=== PATIENT | male | born 1980 | race Caucasian/White ===

== ENCOUNTER 2017-02-28 15:43 | Inpatient (IN) | payer OTHER ==
--- NOTE | 2017-02-28 16:09 | EDPHY ---
H & P Smoking Status: Current every day smoker Time Seen by Provider: 02/28/17 15:45 HPI/ROS: Chief complaint. Agitation HPI. 36-year-old male here on an M1 hold and accompanied by to [place] Police officers. They went to the patient's apartment for a welfare check and found riding in pictures drawn all over the morales and no food in the house. The patient was not oriented and speaking nonsensically. Apparently he has had mental health problems in the past but has not been taking medication for some time. The patient does not express any complaints to questions but has flight of ideas and tangential thinking ROS Constitutional. no fever/chills, no weakness Eyes. no problems with vision ENT. no sore throat, no nasal drainage Cardiovascular. no chest pain Respiratory. no shortness of breath, no cough Abdominal. no abdominal pain, no nausea/vomiting, no diarrhea . no problems urinating MS. no calf pain/swelling, no neck/back pain, no joint pain Skin. no rash Lymph. no swollen glands Neuro. no headache, no dizziness, no difficulty walking or with speech (Clemente Quick) Past Medical/Surgical History: Apparent mental health issue though the patient does not tell me what it is. We have no old records. (Clemente Quick) Social History: Single, daily smoker, no recent alcohol (Clemente Quick) Physical Exam: General Appearance: Alert well-developed male speaking rapidly and changing quickly between subjects in no obvious distress Eyes: Pupils equal and round no pallor or injection. ENT, Mouth: Mucous membranes are moist. Respiratory: There are no retractions, lungs are clear to auscultation. Cardiovascular: Regular rate and rhythm. Gastrointestinal: Abdomen is soft and nontender, no masses, bowel sounds normal. Neurological: Awake and alert, sensory and motor exams grossly normal. Skin: Warm and dry, no rashes. Musculoskeletal: Neck is supple nontender. Extremities symmetrical, full range of motion. Psychiatric: Unclear patient is oriented as he will not answer my questions for person, place, time., there is agitation. (Clemente Quick) Constitutional: Initial Vital Signs Temperature (C) 37.1 C 02/28/17 15:54 Heart Rate 88 02/28/17 15:54 Respiratory Rate 22 H 02/28/17 15:54 Blood Pressure 160/89 H 02/28/17 15:54 O2 Sat (%) 98 02/28/17 15:54 O2 Delivery Mode Room Air Allergies/Adverse Reactions: No Known Allergies Allergy (Unverified 02/28/17 16:15) Home Medications: Medication Instructions Recorded Unobtainable 12/15/16 NK [No Known Home Meds] 03/01/17 Medical Decision Making Procedures: Placed on M1 hold by mental health (Clemente Quick) ED Course/Re-evaluation: Patient has been evaluated by mental health and they are looking for placement Patient is given Zyprexa and Ativan orally. Patient remains stable (Clemente Quick) Differential Diagnosis: Patient is psychotic. I have considered drug ingestion as well as withdrawal. He apparently has a mental health history and has not been taking medication. ( Clemente Quick) Other Provider: Care assumed at 6:40 a.m. with inpatient psychiatric placement pending for psychotic disorder. The patient will be transferred to [facility] for inpatient psychiatric hospital bed not available at this facility, in stable condition; accepting physician is Dr. Zarco. (Tomas Doty) Care Turn Over: Dr. Spencer at 2230. (Clemente Quick) 2235 care assumed by me from Dr. Quick pending placement. [address] Doty pending placement. No issues during my care overnight. (Reagan Spencer) - Data Points Laboratory Results: Laboratory Results 02/28/17 17:20 02/28/17 17:20 Medications Given: Discontinued Medications Lorazepam (Ativan) 2 mg PO EDNOW ONE Stop: 02/28/17 21:45 Last Admin: 02/28/17 21:48 Dose: 2 mg Lorazepam (Ativan) 2 mg PO EDNOW ONE Stop: 03/01/17 08:28 Last Admin: 03/01/17 08:40 Dose: 2 mg Olanzapine (Zyprexa Zydis) 10 mg PO EDNOW ONE Stop: 02/28/17 21:06 Last Admin: 02/28/17 21:10 Dose: 10 mg Departure - Departure Disposition: [facility] IP Clinical Impression: Acute psychosis Condition: Fair
[2017-02-28 17:35] LABS: % IMMATURE GRANULYOCYTES 0.3 % (0.0-1.1); ABSOLUTE IMMATURE GRANULOCYTES 0.02 10^3/uL (0.00-0.10); ADD DIFF? NO; ADD MORPH? NO; ADD SCAN? NO; ATYPICAL LYMPHOCYTE FLAG 20 (0-99); FRAGMENT RBC FLAG 0 (0-99); HEMATOCRIT 45.4 % (40.0-51.0); HEMOGLOBIN 15.5 g/dL (13.7-17.5); LEFT SHIFT FLG 0 (0-99); LIPEMIA HEMOLYSIS FLAG 90 (0-99); MEAN CELL HEMOGLOBIN 30.6 pg (27.9-34.1); MEAN CELL HEMOGLOBIN CONCENTR. 34.1 g/dL (32.4-36.7); MEAN CELL VOLUME 89.5 fL (81.5-99.8); MEAN PLATELET VOLUME 9.6 fL (8.7-11.7); PLATELET CLUMPS FLAG 10 (0-99); PLATELET COUNT 273 10^3/uL (150-400); RED BLOOD CELL COUNT 5.07 10^6/uL (4.40-6.38); RED CELL DISTRIBUTION WIDTH 14.6 % (11.5-15.2)
[2017-02-28 18:13] LABS: ANION GAP 13 mEq/L (8-16); CALCIUM 9.7 mg/dL (8.5-10.4); CARBON DIOXIDE 27 mEq/l (22-31); CHLORIDE 103 mEq/L (97-110); CREATININE 0.9 mg/dL (0.7-1.3); ETHANOL SERUM < 10 mg/dL (0-10); GLOMERULAR FILTRATION RATE > 60; GLUCOSE 74 mg/dL (70-100); POTASSIUM 4.1 mEq/L (3.5-5.2); SODIUM 143 mEq/L (134-144)
[2017-02-28] MEDS ORDERED: OLANZapine DISINTEGR 10 MG TAB PO ONE (21:05)
[2017-02-28] MEDS ORDERED: LORazepam 1 MG TAB PO ONE (21:44)
[2017-03-01] MEDS ORDERED: LORazepam 1 MG TAB PO ONE (08:27)
[2017-03-01] MEDS ORDERED: MAGNESIUM HYDROXIDE 30 ML UDCUP PO PRN (12:38)
[2017-03-01] MEDS ORDERED: OLANZapine DISINTEGR 10 MG TAB PO PRN (12:38)
[2017-03-01] MEDS ORDERED: LORazepam 0.5 MG TAB PO PRN (12:38)
[2017-03-01] MEDS ORDERED: MAG HYDROX/AL HYDROX/SIMETH 30 ML UDCUP PO PRN (12:38)
[2017-03-01] MEDS: LORazepam 0.5 MG TAB PO PRN ×2 (14:17→17:52)
[2017-03-01] MEDS: NICOTINE POLACRILEX 2 MG GUM B PRN ×4 (14:19→17:54)
--- NOTE | 2017-03-01 14:46 | BAPA ---
[f rep st] ADMISSION PSYCHIATRIC ASSESSMENT DATE OF SERVICE: 03/01/2017 CHIEF COMPLAINT: "How big are your pupils, you should check them every day. My TV was too big, bigger than my head." HISTORY OF PRESENT ILLNESS: The patient is a 42-year-old single man who was brought to the [facility] ED on an M1 hold. APS had been called by the field account manager due to concerns for the patient's well being. When police conducted a welfare check on the patient, it was observed that the patient had no food in his apartment, his apartment was in disarray, and patient had drawn various numbers, lines and letters on the white apartment morales. Per M1 hold, documents stated, "Respondent is highly tangential and nonsensical, becomes irate when asked if he wants to go to the hospital. Respondent's apartment is covered in crayon drawings of random words and numbers. Only a box of raw noodles in the refrigerator, apartment's staff report respondent has lost a large amount of weight and become increasingly bizarre in the past few months. Respondent appears manic and gravely disabled. " The [employer]ive [employer] charcoal burner was informed that the patient had thrown something at the [employer] charcoal burner when he was informed of the need to go to the hospital. When the [employer] be[employer] charcoal burner entered the patient's room in the ED, the patient was sitting on the bed, noted to be talking to the TV. He displayed no insight into the reason he was in the hospital, and unable to answer basic historical information in any reliable manner. According to collateral information, patient has been living in [place] for about 5-6 months. He moved from [place]. The patient's field account manager noted the patient appeared to be functioning well initially, but residents and the field account manager have been increasingly concerned about the patient's well being. The patient made nonsensical statements during brief evaluation in the ED. During his evaluation on the inpatient Behavioral Health unit on [address], the patient was sitting calmly in a chair, wearing scrubs bottoms, but no top, with a blanket wrapped around his shoulders. He acted like he was reading a newspaper, but he kept shuffling the papers, putting them down and picking them back up. He seemed somewhat restless and agitated. He asks , "Where am I", followed by a series of questions without waiting for the MD to respond. He said "can I watch TV, can I smoke, when can I leave?" When MD tried to ask the patient what he remembered prior to coming to the hospital, patient says "I was picked up in the lobby" and then repeated "where am I?" The patient was not able to provide any other information about his past medical or psychiatric history, or even where he was living prior to coming to the hospital. The patient eventually said that he wanted to stop the interview and asked if he could watch TV. PAST PSYCHIATRIC HISTORY: Initially in the emergency department, patient was not able to answer any questions about prior psych treatment, prior suicide attempts, or previous hospitalizations. According to report from the ED nurse who had spoken with the patient's father in [place] just this morning, father reported that the patient has been previously admitted to the hospital and has been treated for bipolar disorder, and was taking medications in the past, although the father did not know what type of medications the patient was on, but father states that the patient moved from [place] to [place] in order to be able to use marijuana, and that the father states that the patient has been using marijuana regularly over the past 6 months, and as far as the father can tell, patient seems to have decompensated significantly, based upon their limited interactions. Father has not seen the patient in person during that time. ALLERGIES: Patient reports no known drug allergies. CURRENT MEDICATIONS: Patient is not currently taking any medications. PAST MEDICAL HISTORY: The patient denied any previous medical conditions. He denied any surgical history when he was evaluated in the emergency department. SOCIAL HISTORY: Limited information, based upon patient's unreliable historian. Most of the information we have comes from the field account manager where the patient lived, and from the patient's father. The patient was living in [place] until about 6 months ago. The patient has moved to [place], according to the father, in order to be able to smoke marijuana legally. Patient has been staying alone in his apartment and, according to the field account manager and his neighbors, has decompensated significantly over that time, not eating, losing weight and, according to the police who did the welfare check, he has been scribbling nonsense on his morales with crayons and markers. It is not known whether or not patient has any social supports in [place], but as far as we know the only family that he has lives in [place]. Nothing is known about his educational or employment history. SUBSTANCE USE HISTORY: Most of what we know comes from the father, who states that the patient wanted to move to [place] in order to smoke marijuana legally. Reports would substantiate claims that the patient has been engaging in frequent use of marijuana, particularly over the last 6 months. His urine drug screen was positive for THC in the emergency department. The patient also reports that he is a daily cigarette smoker, but he denied any alcohol use when he was asked by the ED physician. FAMILY HISTORY: Unknown at this time, because the patient is unable to provide that information and we have not obtained a family history from his father, who is the only family member who has been in contact with medical staff. ADMISSION LABS: White cell count is 7.05, hemoglobin is 15.5, hematocrit 45.4, platelet count is 273, absolute neutrophils 4.4, sodium 143, potassium 4.1, chloride 103, BUN is 20 and creatinine 0.9, glucose 74, calcium 9.7. Urine drug screen was positive for marijuana. Negative for all other drugs of abuse. Blood alcohol level is less than 10. Acetaminophen level was undetected. MENTAL STATUS EXAM: This is an alert, well-developed male, speaking rapidly and changing subjects quickly. He initially asked the psych MD a rapid series of questions without waiting for responses. He seems easily distracted and unable to maintain focus for very long. His affect is labile. He does not respond when asked to describe his mood. His thought process is tangential and disorganized. His thought content, he denies any auditory or visual hallucinations. There is no evidence of paranoia or delusions. The patient is alert and oriented to person only. He does not know where he is or what day it is, or why he is in the hospital. His intellect appears to be below average, based upon fund of knowledge and vocabulary. His insight and judgment are both impaired. IMPRESSION: This is a 42-year-old male who, according to his father, has a prior history of bipolar disorder, which has been treated in the past. The patient has been, since moving to [place] 6 months ago, not receiving any treatment, and has been using marijuana daily. The father does report that the patient has been a habitual marijuana user prior to his move to [place]. DIAGNOSES: 1. Substance-induced psychotic disorder. 2. Cannabis use disorder, severe. 3. Psychosocial stressors include unemployed, financial problems, isolation, living away from his family and friends, recent arrival in a new state. 4. Apartment has been kept in a state of disrepair. PLAN OF TREATMENT: 1. Admit to behavioral health inpatient unit on an M1 hold. 2. Monitor closely for safety and reasonable precautions. 3. Will prescribe Zyprexa 10 mg p.o. at bedtime for his acute psychotic symptoms, as well as Zyprexa 5 mg p.o. q.4 hours p.r.n. for agitation and psychosis. We will also prescribe Ativan 1 mg p.o. q.4 hours p.r.n. for agitation and psychosis, as well as other comfort medications. 4. Will encourage the patient to engage in individual, group and milieu psychotherapies. 5. Estimated length of stay is 3-5 days. /[id number]/MODL MTDD
--- NOTE | 2017-03-01 14:56 | BCON ---
[f rep st] BEHAVIORAL HEALTH CONSULTATION INTERNAL MEDICINE CONSULTATION DATE OF CONSULTATION: 03/01/2017 REFERRING PHYSICIAN: Darwin Zarco MD REASON FOR REFERRAL: Medical clearance for inpatient behavioral health stay. HISTORY OF PRESENT ILLNESS: The patient was brought to the emergency department by police when they were called to do a welfare check. He was found in his apartment writing on the wall with no food in the house. He was not oriented, and he was speaking nonsensically. He was brought to the emergency department where he was evaluated by the mental health team and admitted for further psychiatric care. He currently is without any acute complaints. PAST MEDICAL HISTORY: 1. Bipolar disorder. 2. Left and right anterior cruciate ligament tears on different occasions. PAST SURGICAL HISTORY: He has had a repair of the left anterior cruciate ligament tear. MEDICATIONS: He reports that he had been taking a number different benzodiazepines but had not been taking any medications recently. ALLERGIES: There are no known drug allergies. 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 He is a heavy tobacco smoker. He is a marijuana user. He uses alcohol. There was a recent emergency department visit about 2 months ago for LSD intoxication. FAMILY HISTORY: Noncontributory. REVIEW OF SYSTEMS: He denies pain, fevers, chills, cough, dyspnea, nausea, vomiting, constipation, diarrhea. He has had some weight loss and otherwise a 10-point review of systems is negative. PHYSICAL EXAMINATION: VITAL SIGNS: Blood pressure is 121/70, heart rate is 90 , respiratory rate is 14, oxygen saturation is 98% on room air. Temperature is 36.4 degrees centigrade. His weight is 72.6 kg for a body mass index of 22.3. GENERAL: This is a somewhat gaunt-appearing individual, appears his chronologic age, cooperative, and in no acute distress. Initially somnolent but awakens to light touch. HEENT: Extraocular movements are intact. Pupils are equal, round, and reactive to light. Mucous membranes are moist. Dentition is in good condition. Airway is uncrowded, Mallampati class 1. NECK : Supple. HEART: There is regular rate and rhythm with no murmurs, rubs, or gallops. LUNGS: Clear to auscultation bilaterally. ABDOMEN: Soft, nontender , nondistended with normoactive bowel sounds EXTREMITIES: There is no cyanosis , clubbing, or edema. NEUROLOGIC: He is alert and oriented x3. Cranial nerves 2-12 are grossly intact. There is no focal weakness. Sensation is intact to light touch and gait is within normal limits. LABORATORY STUDIES: From the emergency department. CBC was normal. Chemistry panel was normal. Toxicology in the serum was negative for acetaminophen or ethyl alcohol. Toxicology in the urine was none, negative for marijuana and otherwise negative for substances of abuse. ASSESSMENT/RECOMMENDATIONS: 1. Mental health issues. Pending further evaluation and management per the Mental Health Team. 2. Tobacco dependence syndrome. He was encouraged to stop smoking. Nicotine replacement has been prescribed. 3. Polysubstance abuse. He may benefit from specific substance abuse counseling. 4. History of anterior cruciate ligament tear on the right without surgical repair. He reports he gets occasional pain and acetaminophen has been appropriately prescribed. 5. I see no medical contraindications to the patient's continued stay in the inpatient behavioral health unit or to any psychiatric medications or procedures. Thank you very much for including me in the care of the patient, and please do not hesitate to contact me or the hospitalist service should there be need for further medical evaluation. /[id number]/MODL MTDD
[2017-03-01] MEDS: ACETAMINOPHEN 325 MG TAB PO PRN (15:22)
[2017-03-01] MEDS ORDERED: OLANZapine 10 MG TAB PO SCH (21:00)
[2017-03-02] MEDS: LORazepam 0.5 MG TAB PO PRN ×3 (01:00→12:41)
[2017-03-02] MEDS: NICOTINE POLACRILEX 2 MG GUM B PRN ×9 (05:08→19:18)
[2017-03-02] MEDS ORDERED: PALIPERIDONE 3 MG TAB.ER PO SCH (09:00)
--- NOTE | 2017-03-02 13:41 | SOAPPROG ---
YUDI Progress Note Assessment/Plan: Assessment: 03/02/17 13:32 Plan: 1. Patient states he prefers to take Invega which has been helpful to him in past. D/C Zyprexa and start Invega 3mg daily. 2. Place on [facility] 3. CC will attempt to contact family for collateral information. Subjective: Met with patient and discussed with staff. Patient presents with pressured speech and racing thoughts. He is difficult to interrupt. Patient says he has moved around [facility]. He lived in [place] in [phone] while he was attending [employer]. He was born and raised in [place], and supposedly that is where his family now lives. He says his POC when he was 10 yo, and that his father, Karsten, is his payee. However, he also says his FOC has "dementia" and that his SOC, Valerie, is taking care of his dad. Patient says he's taken "every single" type of psych med in past and is very picky about which meds he will voluntarily take. He says he won't take Zyprexa, Depakote or lithium, but refuses to say what effect they have or whether he's experienced adverse effects from any of these meds. He also reports being hospitalized "7 to 10 times" in [place] and "other places" but says it was always against his will because "someone called the police." Patient presents as paranoid and delusional, at one point he says he needs "batteries for my tape recorder" so he can record everything we talk about, but says, "that's OK, I will remember everything word for word." Patient gave a list of phone numbers for his family each one from memory. has no way to know if they are reliable, but has passed on information to CC. FOC=Karsten Thibodeaux Home: SOC=Valerie Patient denies any SI/HI. Objective: Vital Signs Temp Pulse Resp BP Pulse Ox 36.3 C 76 14 134/82 H 95 03/02/17 06:00 03/02/17 06:00 03/02/17 06:00 03/02/17 06:00 07/28/17 06:00 MSE: Tall, thin, gaunt face, campos stubble, glasses, shorts, T-shirt, pleasant. Affect: Elevated Mood: "OK" Speech: Pressured TP: Loose TC: Paranoia, denies AH/VH, denies SI/HI Insight/Judgment: Impaired - Time Spent With Patient Time Spent With Patient: 25" - Pending Discharge Pending Discharge Within 24 Hours: No ICD10 Worksheet Patient Problems: Problems Problem Status Onset Acute psychosis Acute Cannabis use disorder, severe, dependence Acute Severe manic bipolar 1 disorder with psychotic behavior Acute - ICD10 Problem Qualifiers (1) Severe manic bipolar 1 disorder with psychotic behavior (2) Cannabis use disorder, severe, dependence
[2017-03-02] MEDS ORDERED: QUEtiapine FUMARATE 50 MG TAB PO PRN (13:57)
[2017-03-02] MEDS ORDERED: LORazepam 0.5 MG TAB PO PRN (13:59)
[2017-03-02] MEDS: ACETAMINOPHEN 325 MG TAB PO PRN (15:46)
[2017-03-02] MEDS: LORazepam 1 MG TAB PO PRN (18:00)
[2017-03-02] MEDS ORDERED: diphenhydrAMINE 50 MG CAP PO PRN (20:27)
[2017-03-03] MEDS: LORazepam 1 MG TAB PO PRN ×4 (04:25→23:12)
[2017-03-03] MEDS: NICOTINE POLACRILEX 2 MG GUM B PRN ×8 (04:25→23:14)
[2017-03-03] MEDS: PALIPERIDONE 3 MG TAB.ER PO SCH (08:53)
[2017-03-03] MEDS ORDERED: QUEtiapine FUMARATE 50 MG TAB PO PRN (12:32)
--- NOTE | 2017-03-03 12:49 | SOAPPROG ---
SOAP Progress Note Assessment/Plan: Assessment: 36yo with hx BMD, moved to [place] from [place] several months ago, off psych meds, and smoking THC. Decompensated since, admitted after welfare check and noted with no food in apt and writings in crayon all over morales, gravely disabled, clinically presented manic and psychotic. refuses any mood stabilizers. 03/03/17 12:34 per staff, slept 6hr. had benadryl this am as prn. was able to sit throughout interview, in behavioral control, wearing glasses, articulate, but with incr rate speech almost pressured, mood "fine", but with intense affect, somewhat argumentative with irritable vijay, pt asking multiple questions with little time for response, illogical and tangential responses to questions, denied any AH/VH or SI/HI, made Biblical references at times, and with loose associations (ie to another staff: "your hair is mueller, do you want me to tell you the composition of the yellow sun?), poor insight, impaired judgmt. does not feel he needs to be in hospital, wants to leave to pay rent by 03/06. when asked about THC, denied smoking, but wouldn't answer about edibles, rather stated "CBD not THC or PCP, but you do THC and maybe PCP..." No evid clinically of any s/e to medications. PLAN: cont on [facility] cont Invega 6mg qam. had requested this, and reports on IM in past. likely will need further increase incr seroquel from 50mg q4hr prn to 100mg q4hr prn. cont prn BZDs and prn for nicotine use d/o. Objective: Vital Signs Temp Pulse Resp BP Pulse Ox 36.9 C 70 14 127/78 H 94 03/03/17 06:00 03/03/17 06:00 03/03/17 06:00 03/03/17 06:00 03/03/17 06:00 - Time Spent With Patient Time Spent With Patient: 25min - Pending Discharge Pending Discharge Within 24 Hours: No Pending Discharge Within 48 Hours: No ICD10 Worksheet Patient Problems: Problems Problem Status Onset Acute psychosis Acute Cannabis use disorder, severe, dependence Acute Severe manic bipolar 1 disorder with psychotic behavior Acute
[2017-03-03] MEDS: NICOTINE 14 MG/24 HR PATCH TD SCH (16:02)
[2017-03-03] MEDS: QUEtiapine FUMARATE 100 MG TAB PO PRN (20:26)
[2017-03-04] MEDS: LORazepam 1 MG TAB PO PRN ×3 (03:29→16:10)
[2017-03-04] MEDS: NICOTINE POLACRILEX 2 MG GUM B PRN ×7 (03:38→17:38)
[2017-03-04] MEDS: NICOTINE 14 MG/24 HR PATCH TD SCH (08:24)
[2017-03-04] MEDS: PALIPERIDONE 3 MG TAB.ER PO SCH ×2 (08:26→20:15)
[2017-03-04] MEDS: ACETAMINOPHEN 325 MG TAB PO PRN (18:18)
[2017-03-04] MEDS: clonazePAM 0.5 MG TAB PO SCH (20:15)
--- NOTE | 2017-03-04 23:53 | SOAPPROG ---
SOAP Progress Note Assessment/Plan: Assessment: 36yo with hx BMD, moved to [place] from [place] several months ago, off psych meds, and smoking THC. Decompensated since, admitted after welfare check and noted with no food in apt and writings in crayon all over morales, gravely disabled, clinically presented manic and psychotic. refuses any mood stabilizers. on [facility] 03/03/17 12:34 per staff, slept 6hr. had benadryl this am as prn. was able to sit throughout interview, in behavioral control, wearing glasses, articulate, but with incr rate speech almost pressured, mood "fine", but with intense affect, somewhat argumentative with irritable vijay, pt asking multiple questions with little time for response, illogical and tangential responses to questions, denied any AH/VH or SI/HI, made Biblical references at times, and with loose associations (ie to another staff: "your hair is mueller, do you want me to tell you the composition of the yellow sun?), poor insight, impaired judgmt. does not feel he needs to be in hospital, wants to leave to pay rent by 03/06. when asked about THC, denied smoking, but wouldn't answer about edibles, rather stated "CBD not THC or PCP, but you do THC and maybe PCP..." No evid clinically of any s/e to medications. PLAN: cont on [facility] cont Invega 6mg qam. had requested this, and reports on IM in past. likely will need further increase incr seroquel from 50mg q4hr prn to 100mg q4hr prn. cont prn BZDs and prn for nicotine use d/o. 03/04/17 15:45 slept 5hr. responding to int stim, talking to self and has multiple med change requests to RN for [place], incl wants stronger nicotine patch, off ativan, prefers 4mg klonopin, off seroquel b/c dry mouth, requests methadone and ambien. on interview, pt makes same requests again as above. talked about a pyramid scheme of drugs incl heroin and how to get off heroin, states "I enjoy Invega" and doesn't mind increase when offered. persev on klonopin that this helped in past and better than ativan. most of conversation was tangential, pressured, with irritable affect, many sarcastic comments, asking several ?s before answer could be provided, illogical and tangential thought processes, unable to answer interview questions in any meaningful manner. denied si. has been observed responding to int stimuli on unit. somewhat incr psychom activity but able to sit throughout interview. nml/loud vol of speech, with fairly intense gaze during interview. PLAN: will change Ativan 1-2mg prn to Klonopin 0.5mg bid with 0.25mg bid prn. has been using 6mg ativan daily on average. incr Invega to 01/06 from 6mg qam changed mind and just wants to keep on 14mcg omkar patch Objective: Vital Signs Temp Pulse Resp BP Pulse Ox 36.6 C 77 12 125/78 H 94 03/04/17 06:00 03/04/17 06:00 03/04/17 06:00 03/04/17 06:00 03/04/17 06:00 - Time Spent With Patient Time Spent With Patient: 35min - Pending Discharge Pending Discharge Within 24 Hours: No Pending Discharge Within 48 Hours: No ICD10 Worksheet Patient Problems: Problems Problem Status Onset Acute psychosis Acute Cannabis use disorder, severe, dependence Acute Severe manic bipolar 1 disorder with psychotic behavior Acute
[2017-03-05] MEDS: clonazePAM 0.5 MG TAB PO PRN ×2 (03:17→10:03)
[2017-03-05] MEDS: NICOTINE POLACRILEX 2 MG GUM B PRN ×3 (04:17→18:51)
[2017-03-05] MEDS: PALIPERIDONE 3 MG TAB.ER PO SCH ×2 (08:30→20:25)
[2017-03-05] MEDS: NICOTINE 14 MG/24 HR PATCH TD SCH (08:30)
[2017-03-05] MEDS: clonazePAM 0.5 MG TAB PO SCH ×2 (08:30→20:24)
[2017-03-05] MEDS ORDERED: OLANZapine DISINTEGR 10 MG TAB ONE (10:33)
[2017-03-05] MEDS ORDERED: OLANZapine DISINTEGR 10 MG TAB PO ONE (11:30)
[2017-03-05] MEDS ORDERED: PALIPERIDONE 3 MG TAB.ER PO ONE (11:30)
[2017-03-05] MEDS ORDERED: clonazePAM 0.5 MG TAB PO ONE ×2 (14:00→17:00)
--- NOTE | 2017-03-05 23:19 | SOAPPROG ---
SOAP Progress Note Assessment/Plan: Assessment: 36yo with hx BMD, moved to [place] from [place] several months ago, off psych meds, and smoking THC. Decompensated since, admitted after welfare check and noted with no food in apt and writings in crayon all over morales, gravely disabled, clinically presented manic and psychotic. refuses any mood stabilizers. on [facility] [[email or web address] 03/03/17 12:34 per staff, slept 6hr. had benadryl this am as prn. was able to sit throughout interview, in behavioral control, wearing glasses, articulate, but with incr rate speech almost pressured, mood "fine", but with intense affect, somewhat argumentative with irritable vijay, pt asking multiple questions with little time for response, illogical and tangential responses to questions, denied any AH/VH or SI/HI, made Biblical references at times, and with loose associations (ie to another staff: "your hair is mueller, do you want me to tell you the composition of the yellow sun?), poor insight, impaired judgmt. does not feel he needs to be in hospital, wants to leave to pay rent by 03/06. when asked about THC, denied smoking, but wouldn't answer about edibles, rather stated "CBD not THC or PCP, but you do THC and maybe PCP..." No evid clinically of any s/e to medications. PLAN: cont on [facility] [[email or web address]] cont Invega 6mg qam. had requested this, and reports on IM in past. likely will need further increase incr seroquel from 50mg q4hr prn to 100mg q4hr prn. cont prn BZDs and prn for nicotine use d/o. 03/04/17 15:45 slept 5hr. responding to int stim, talking to self and has multiple med change requests to RN for MD, incl wants stronger nicotine patch, off ativan, prefers 4mg klonopin, off seroquel b/c dry mouth, requests methadone and ambien. on interview, pt makes same requests again as above. talked about a pyramid scheme of drugs incl heroin and how to get off heroin, states "I enjoy Invega" and doesn't mind increase when offered. persev on klonopin that this helped in past and better than ativan. most of conversation was tangential, pressured, with irritable affect, many sarcastic comments, asking several ?s before answer could be provided, illogical and tangential thought processes, unable to answer interview questions in any meaningful manner. denied si. has been observed responding to int stimuli on unit. somewhat incr psychom activity but able to sit throughout interview. nml/loud vol of speech, with fairly intense gaze during interview. PLAN: will change Ativan 1-2mg prn to Klonopin 0.5mg bid with 0.25mg bid prn. has been using 6mg ativan daily on average. incr Invega to 01/06 from 6mg qam changed mind and just wants to keep on 14mcg omkar patch 03/05/17 12:53 per staff, slept 6hr. constantly responding to int stim when alone. illogical thoughts, loose. was asked to leave group b/c verbally aggressive and loud. security was stand-by when pt argued about prn dose of klonopin at 3am on interview, pt initially challenging, condescending, sarcastic, frequently interrupting and annoyed with questions until "you finally asked me a good question". affect calmed in intensity and pt provided more history although continued tangential, difficult to follow, and with almost pressured speech. no SI, didn't directly answer whether experiencing ah/vh but +talking to unseen others after 1:1 when on exercise bike. +inc psychom activity. intensity of eye gaze/eye contact. +insight into needing medication and incr invega, but also asks for methadone and adderall. "I took every drug available recreationally", thinks adderall helped calm and wants eval for ADHD Dx. In piecing together info provided despite tangentiality, indicated hx of BMD since age 15, in residential at 20yo for 1yr but sent to a [facility] in [place] , attended [facility] late 1989's, most recently was in psych treatment with Dr. Siomara Ruelas for 12 yr at [facility] in [place], [place] and allowed PEARL today. Last saw her in Jul 2016. was getting [facility] but not filling anymore now. states father Karsten is his payee, ph#[phone]. agreed to sign PEARL. Hx of Zyprexa x 12yr until 2007, gave "fatty liver" and much wt gain, never wants again. then Saphris until 2011, stopped working. 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 may have been managing vijay with higher klonopin doses in past. Add Invega 3mg qd prn to 01/06, then will plan to sched 6mg bid then IM if pt agreeable. signed [facility]ARL for outp psychiatrist in [place] informed cc of above and ID issue Objective: Vital Signs Temp Pulse Resp BP Pulse Ox 36.9 C 78 14 121/77 H 98 03/05/17 06:00 03/05/17 06:00 03/05/17 06:00 03/05/17 06:00 03/05/17 06:00 Medications Generic Name Dose Route Start Last Admin Trade Name Freq PRN Reason Stop Dose Admin Clonazepam 0.5 mg 03/05/17 15:32 Klonopin PO 09/01/17 15:31 BID PRN AGITATION/ANXIETY Diphenhydramine HCl 50 mg 03/04/17 19:02 Benadryl PO 08/31/17 19:01 BID PRN EPS OR INSOMNIA Nicotine 14 mg 03/03/17 09:00 03/05/17 08:30 Nicoderm Cq TD 08/30/17 08:59 14 mg DAILY MORE Nicotine Polacrilex 2 mg 03/01/17 12:38 03/05/17 18:51 Nicorette B 08/28/17 12:37 2 mg Q1HR PRN Nicotine withdrawal Paliperidone 6 mg 03/03/17 09:00 03/05/17 08:30 Invega PO 08/30/17 08:59 6 mg DAILY MORE Quetiapine Fumarate 100 mg 03/03/17 12:39 07/29/17 20:26 Seroquel PO 08/30/17 12:38 100 mg Q4HRS PRN Agitation, Psychosis Clonazepam 0.5 mg 03/04/17 21:00 03/05/17 20:24 Klonopin PO 08/31/17 20:59 0.5 mg BID MORE Paliperidone 3 mg 03/04/17 21:00 03/05/17 20:25 Invega PO 08/31/17 20:59 3 mg HS MORE - Time Spent With Patient Time Spent With Patient: 35min - Pending Discharge Pending Discharge Within 24 Hours: No Pending Discharge Within 48 Hours: No ICD10 Worksheet Patient Problems: Problems Problem Status Onset Acute psychosis Acute Cannabis use disorder, severe, dependence Acute Severe manic bipolar 1 disorder with psychotic behavior Acute
[2017-03-05] MEDS ORDERED: PALIPERIDONE 3 MG TAB.ER PO PRN (23:22)
[2017-03-06] MEDS: clonazePAM 0.5 MG TAB PO PRN ×2 (01:40→12:57)
[2017-03-06] MEDS: NICOTINE POLACRILEX 2 MG GUM B PRN ×2 (01:40→20:06)
[2017-03-06] MEDS: NICOTINE 14 MG/24 HR PATCH TD SCH (07:25)
[2017-03-06] MEDS: PALIPERIDONE 3 MG TAB.ER PO SCH ×2 (09:35→19:58)
[2017-03-06] MEDS: clonazePAM 0.5 MG TAB PO SCH ×2 (09:35→19:57)
[2017-03-06] MEDS: MELATONIN 3 MG TAB PO PRN (19:58)
[2017-03-07] MEDS: NICOTINE POLACRILEX 2 MG GUM B PRN ×5 (02:36→20:26)
[2017-03-07] MEDS: clonazePAM 0.5 MG TAB PO PRN (02:36)
[2017-03-07] MEDS: NICOTINE 14 MG/24 HR PATCH TD SCH ×2 (06:35→08:40)
[2017-03-07] MEDS: PALIPERIDONE 3 MG TAB.ER PO SCH ×2 (08:41→20:25)
[2017-03-07] MEDS: clonazePAM 0.5 MG TAB PO SCH ×2 (08:41→20:25)
--- NOTE | 2017-03-07 18:14 | SOAPPROG ---
SOAP Progress Note Assessment/Plan: Assessment: 36yo with hx BMD, moved to [place] from [place] several months ago, off psych meds, and smoking THC. Decompensated since, admitted after welfare check and noted with no food in apt and writings in crayon all over morales, gravely disabled, clinically presented manic and psychotic. refuses any mood stabilizers. on [facility] 03/03/17 12:34 per staff, slept 6hr. had benadryl this am as prn. was able to sit throughout interview, in behavioral control, wearing glasses, articulate, but with incr rate speech almost pressured, mood "fine", but with intense affect, somewhat argumentative with irritable vijay, pt asking multiple questions with little time for response, illogical and tangential responses to questions, denied any AH/VH or SI/HI, made Biblical references at times, and with loose associations (ie to another staff: "your hair is mueller, do you want me to tell you the composition of the yellow sun?), poor insight, impaired judgmt. does not feel he needs to be in hospital, wants to leave to pay rent by 03/06. when asked about THC, denied smoking, but wouldn't answer about edibles, rather stated "CBD not THC or PCP, but you do THC and maybe PCP..." No evid clinically of any s/e to medications. PLAN: cont on [facility] cont Invega 6mg qam. had requested this, and reports on IM in past. likely will need further increase incr seroquel from 50mg q4hr prn to 100mg q4hr prn. cont prn BZDs and prn for nicotine use d/o. 03/04/17 15:45 slept 5hr. responding to int stim, talking to self and has multiple med change requests to RN for MD, incl wants stronger nicotine patch, off ativan, prefers 4mg klonopin, off seroquel b/c dry mouth, requests methadone and ambien. on interview, pt makes same requests again as above. talked about a pyramid scheme of drugs incl heroin and how to get off heroin, states "I enjoy Invega" and doesn't mind increase when offered. persev on klonopin that this helped in past and better than ativan. most of conversation was tangential, pressured, with irritable affect, many sarcastic comments, asking several ?s before answer could be provided, illogical and tangential thought processes, unable to answer interview questions in any meaningful manner. denied si. has been observed responding to int stimuli on unit. somewhat incr psychom activity but able to sit throughout interview. nml/loud vol of speech, with fairly intense gaze during interview. PLAN: will change Ativan 1-2mg prn to Klonopin 0.5mg bid with 0.25mg bid prn. has been using 6mg ativan daily on average. incr Invega to 01/06 from 6mg qam changed mind and just wants to keep on 14mcg omkar patch 03/05/17 12:53 per staff, slept 6hr. constantly responding to int stim when alone. illogical thoughts, loose. was asked to leave group b/c verbally aggressive and loud. security was stand-by when pt argued about prn dose of klonopin at 3am on interview, pt initially challenging, condescending, sarcastic, frequently interrupting and annoyed with questions until "you finally asked me a good question". affect calmed in intensity and pt provided more history although continued tangential, difficult to follow, and with almost pressured speech. no SI, didn't directly answer whether experiencing ah/vh but +talking to unseen others after 1:1 when on exercise bike. +inc psychom activity. intensity of eye gaze/eye contact. +insight into needing medication and incr invega, but also asks for methadone and adderall. "I took every drug available recreationally", thinks adderall helped calm and wants eval for ADHD Dx. In piecing together info provided despite tangentiality, indicated hx of BMD since age 15, in nursing home at 20yo for 1yr but sent to a [facility] in [place] , attended [facility] late 1989's, most recently was in psych treatment with Dr. Siomara Ruelas for 12 yr at [facility] in [place], [place] and allowed PEARL today. Last saw her in Jul 2016. was getting [facility] ref[facility] but not filling anymore now. states father Karsten is his payee, ph#[phone]. agreed to sign PEARL. Hx of Zyprexa x 12yr until 2007, gave "fatty liver" and much wt gain, never wants again. then Saphris until 2011, stopped working. 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 may have been managing vijay with higher klonopin doses in past. Add Invega 3mg qd prn to 01/06, then will plan to sched 6mg bid then IM if pt agreeable. signed [facility]L for outp psychiatrist in [place] informed cc of above and ID issue 03/06/17 15:08 late entry per staff, slept 7hr. requests for ambien, suboxone and an ADHD diagnosis. continues manic with tangential and loose thoughts, no si/hi and denied ah/vh. attending groups and more redirectable overall since incr invega yesterday. denied s/e to meds and although still asking for ambien, has been reported to be sleeping well. talked to cc about getting [place] ID. plan: cont klonopin and invega Pt identified Dr. Siomara Ruelas in [facility] (pt signed PEARL) as most recent prescriber Pharmacist checked past Rxs thru [facility], and found 2 different prescribers: Dr. Saul Velazquez in [place] : Haldol in 05/2016, Saphris 10mg bid in 06/2016. Dr. Kathie Padilla in [place] : VPA 250mg TID 05/2016 and 06/2016; VPA 500mg QD 2015,08/2016 Objective: Vital Signs Temp Pulse Resp BP Pulse Ox 36.4 C 82 14 124/68 H 95 03/07/17 05:51 03/07/17 05:51 03/07/17 05:51 03/07/17 05:51 03/07/17 05:51 - Time Spent With Patient Time Spent With Patient: 15min - Pending Discharge Pending Discharge Within 24 Hours: No Pending Discharge Within 48 Hours: No ICD10 Worksheet Patient Problems: Problems Problem Status Onset Acute psychosis Acute Cannabis use disorder, severe, dependence Acute Severe manic bipolar 1 disorder with psychotic behavior Acute
[2017-03-07] MEDS: MELATONIN 3 MG TAB PO PRN (20:25)
--- NOTE | 2017-03-07 21:02 | SOAPPROG ---
SOAP Progress Note Assessment/Plan: Assessment: 36yo with hx BMD, moved to [place] from [place] several months ago, off psych meds, and smoking THC. Decompensated since, admitted after welfare check and noted with no food in apt and writings in crayon all over morales, gravely disabled, clinically presented manic and psychotic. refuses any mood stabilizers. on [facility] 03/03/17 12:34 per staff, slept 6hr. had benadryl this am as prn. was able to sit throughout interview, in behavioral control, wearing glasses, articulate, but with incr rate speech almost pressured, mood "fine", but with intense affect, somewhat argumentative with irritable vijay, pt asking multiple questions with little time for response, illogical and tangential responses to questions, denied any AH/VH or SI/HI, made Biblical references at times, and with loose associations (ie to another staff: "your hair is mueller, do you want me to tell you the composition of the yellow sun?), poor insight, impaired judgmt. does not feel he needs to be in hospital, wants to leave to pay rent by 03/06. when asked about THC, denied smoking, but wouldn't answer about edibles, rather stated "CBD not THC or PCP, but you do THC and maybe PCP..." No evid clinically of any s/e to medications. PLAN: cont on [facility] cont Invega 6mg qam. had requested this, and reports on IM in past. likely will need further increase incr seroquel from 50mg q4hr prn to 100mg q4hr prn. cont prn BZDs and prn for nicotine use d/o. 03/04/17 15:45 slept 5hr. responding to int stim, talking to self and has multiple med change requests to RN for MD, incl wants stronger nicotine patch, off ativan, prefers 4mg klonopin, off seroquel b/c dry mouth, requests methadone and ambien. on interview, pt makes same requests again as above. talked about a pyramid scheme of drugs incl heroin and how to get off heroin, states "I enjoy Invega" and doesn't mind increase when offered. persev on klonopin that this helped in past and better than ativan. most of conversation was tangential, pressured, with irritable affect, many sarcastic comments, asking several ?s before answer could be provided, illogical and tangential thought processes, unable to answer interview questions in any meaningful manner. denied si. has been observed responding to int stimuli on unit. somewhat incr psychom activity but able to sit throughout interview. nml/loud vol of speech, with fairly intense gaze during interview. PLAN: will change Ativan 1-2mg prn to Klonopin 0.5mg bid with 0.25mg bid prn. has been using 6mg ativan daily on average. incr Invega to 01/06 from 6mg qam changed mind and just wants to keep on 14mcg omkar patch 03/05/17 12:53 per staff, slept 6hr. constantly responding to int stim when alone. illogical thoughts, loose. was asked to leave group b/c verbally aggressive and loud. security was stand-by when pt argued about prn dose of klonopin at 3am on interview, pt initially challenging, condescending, sarcastic, frequently interrupting and annoyed with questions until "you finally asked me a good question". affect calmed in intensity and pt provided more history although continued tangential, difficult to follow, and with almost pressured speech. no SI, didn't directly answer whether experiencing ah/vh but +talking to unseen others after 1:1 when on exercise bike. +inc psychom activity. intensity of eye gaze/eye contact. +insight into needing medication and incr invega, but also asks for methadone and adderall. "I took every drug available recreationally", thinks adderall helped calm and wants eval for ADHD Dx. In piecing together info provided despite tangentiality, indicated hx of BMD since age 15, in penitentiary at 20yo for 1yr but sent to a [facility] in [place] , attended [facility] late 1989's, most recently was in psych treatment with Dr. Siomara Ruelas for 12 yr at [facility] in [place], [place] and allowed PEARL today. Last saw her in Jul 2016. was getting [facility] but not filling anymore now. states father Karsten is his payee, ph#[phone]. agreed to sign PEARL. Hx of Zyprexa x 12yr until 2007, gave "fatty liver" and much wt gain, never wants again. then Saphris until 2011, stopped working. 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 may have been managing vijay with higher klonopin doses in past. Add Invega 3mg qd prn to 01/06, then will plan to sched 6mg bid then IM if pt agreeable. signed [facility]ARL for outp psychiatrist in [place] informed cc of above and ID issue 03/06/17 15:08 late entry per staff, slept 7hr. requests for ambien, suboxone and an ADHD diagnosis. continues manic with tangential and loose thoughts, no si/hi and denied ah/vh. attending groups and more redirectable overall since incr invega yesterday. denied s/e to meds and although still asking for ambien, has been reported to be sleeping well. talked to cc about getting [place] ID. plan: cont klonopin and invega Pt identified Dr. Siomara Ruelas in [facility] (pt signed PEARL) as most recent prescriber Pharmacist checked past Rxs [facility], and found 2 different prescribers: Dr. Saul Velazquez in [place] : Haldol in 05/2016, Saphris 10mg bid in 06/2016. Dr. Kathie Padilla in [place] : VPA 250mg TID 05/2016 and 06/2016; VPA 500mg QD 2015,08/2016 [place] PDMP neg. Rx in [place] filled 2014 for BP med and sertraline. 03/07/17 20:39 per staff, slept 6hr. attending groups. more redirectable states his court-appointed atty called him today. wasn't sure what this was about. explained. also working w/cc to find out how to get replacement ID. learned apt is evicting him 04/05. "so if you want to enjoy my company here for another 29 days, I'll stay, if you want me to take meds or the shot, I will..." . not sure if will stay in [place]. again asks for Ambien to help sleep. offered instead could request his prn klonopin then but no increase or addl BZDs. "my goal is to write a 4th book". states he was psych admitted "7x in 4 months, b/c my father called police as a prank and gave them the [employer] code instead of phone number, he has dementia...my mother tried suicide, parents split when I was 11, sister in [place], I grew up with 2 Jews, went to [place] to get out of the system, yeah my father is my payee, he forges documents if I get evicted... I need my Dx changed, to a knee injury diagnosis, not psych, I used to take opiates..." denied med s/e or any physical c/o. MSE: cooperative thru interview, sitting calmly, speech incr rate but not pressured, nml vol, good eye contact, mood "I feel manic now". affect more controlled, not hostile and irritable as in past, tp/tc- more redirectable and somewhat more logical altho still tangential and loose, denied ah/vh or any si/ hi. did not appear responding to int stim. i/j poor/impaired. PLAN: willing to start on Invega Sustenna "If you want me to". states he has taken before. tolerating 6mg am and 3mg hs, was increased to this dose on 03/05. monitor for need for further incr or stability at current dose b4 start sustenna. cont other meds as before. collateral from family per cc. doesn't seem F with dementia. will try to contact prior prescriber(s) for collateral. pt only wiling to take current psychotropics and no other antipsych or mood stabilizer meds. Objective: Vital Signs Temp Pulse Resp BP Pulse Ox 36.4 C 82 14 124/68 H 95 03/07/17 05:51 03/07/17 05:51 03/07/17 05:51 03/07/17 05:51 03/07/17 05:51 - Time Spent With Patient Time Spent With Patient: 35min - Pending Discharge Pending Discharge Within 24 Hours: No Pending Discharge Within 48 Hours: No ICD10 Worksheet Patient Problems: Problems Problem Status Onset Acute psychosis Acute Cannabis use disorder, severe, dependence Acute Severe manic bipolar 1 disorder with psychotic behavior Acute
[2017-03-07] MEDS: diphenhydrAMINE 50 MG CAP PO PRN (21:11)
[2017-03-08] MEDS: NICOTINE POLACRILEX 2 MG GUM B PRN ×7 (05:07→21:59)
[2017-03-08] MEDS: NICOTINE 14 MG/24 HR PATCH TD SCH (08:51)
[2017-03-08] MEDS: clonazePAM 0.5 MG TAB PO SCH ×2 (08:51→20:44)
[2017-03-08] MEDS: PALIPERIDONE 3 MG TAB.ER PO SCH (08:51)
--- NOTE | 2017-03-08 14:46 | SOAPPROG ---
SOAP Progress Note Assessment/Plan: Assessment: Patient with Bipolar disorder desiring to restart Invega Sustenna, which he felt was helpful in the past. Plan: Will restart Invega Sustenna for mood disorder and psychosis. 03/08/17 14:43 Subjective: CC: "The Adult Protective Services deemed that I only had pasta in my refrigerator, so they wanted me to have more fruit, so they put me in here." He reports he is just waiting for an Invega shot, so he can be discharged. 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 He allegedly has written several books including one about bipolar disorder and a novel called "Fadi Lucjed XXX." It is part of a trilogy. His sleep is "good; although, he would be sleeping better if he was in his own bed because "his kid is in [place]. The kid is not his. He does have a dog at home that is not his. He also has a lizard at home that is his. He enjoys [employer] because there are recreational uses. He reports he has never smoked, but he is wearing a patch for research purposes. He does not know if this is a good idea. He reports he works for the [employer] because he gets SSI. Objective: Vital Signs Temp Pulse Resp BP Pulse Ox 36.4 C 93 18 113/69 99 03/08/17 06:00 03/08/17 06:00 03/08/17 06:00 03/08/17 06:00 03/08/17 06:00 Tall, male, appropriately dressed and groomed, calmly sitting in a chair. Good eye contact. Speech - Pressured. Mood- "Great since the Cubs won [employer]." Affect- bright. Thought Process- Tangential, flight of ideas. Thought Content - No SI/HI. +Delusional - grandiose. Insight - Fair. Judgment - Fair. - Time Spent With Patient Time Spent With Patient: 25 - Pending Discharge Pending Discharge Within 24 Hours: No Pending Discharge Within 48 Hours: No ICD10 Worksheet Patient Problems: Problems Problem Status Onset Acute psychosis Acute Cannabis use disorder, severe, dependence Acute Severe manic bipolar 1 disorder with psychotic behavior Acute
[2017-03-08] MEDS ORDERED: PALIPERIDONE PALMITATE 234 MG/1.5 ML SYR IM ONE (15:15)
[2017-03-08] MEDS: clonazePAM 0.5 MG TAB PO PRN (15:18)
[2017-03-08] MEDS: MELATONIN 3 MG TAB PO PRN (21:10)
[2017-03-08] MEDS: diphenhydrAMINE 50 MG CAP PO PRN (21:10)
[2017-03-09] MEDS: NICOTINE POLACRILEX 2 MG GUM B PRN ×6 (04:09→18:50)
[2017-03-09] MEDS: clonazePAM 0.5 MG TAB PO SCH ×2 (08:30→20:50)
[2017-03-09] MEDS: NICOTINE 14 MG/24 HR PATCH TD SCH (08:30)
--- NOTE | 2017-03-09 12:31 | SOAPPROG ---
SOAP Progress Note Assessment/Plan: Assessment: Patient with Bipolar disorder reporting being ready to leave now that he has received his Invega Sustenna shot, which he felt was helpful in the past. He remains pressured and intrusive. Poor insight. Plan: Will continue Invega Sustenna for mood disorder and psychosis. 03/08/17 14:43 03/09/17 12:28 Subjective: "I am annoyed about being here." He reports he can return to his apartment given he is paid up until the end of the month, but he might have to move because the rent went up by $300. He feels the Invega will work well for him. He inquired about an even longer term injection. Objective: Vital Signs Temp Pulse Resp BP Pulse Ox 36.3 C 90 12 116/77 96 03/09/17 04:55 03/09/17 04:55 03/09/17 04:55 03/09/17 04:55 03/09/17 04:55 Tall, male appropriately dressed and groomed. Good eye contact. Speech - pressured. Mood- "Annoyed about being here." Affect- Euthymic. THought Process - Perseverating about being ready to discharge." Thought Content - No SI/HI. NO A/VH. Insight - Poor. Judgment - Fair. - Time Spent With Patient Time Spent With Patient: 25 - Pending Discharge Pending Discharge Within 24 Hours: No Pending Discharge Within 48 Hours: No ICD10 Worksheet Patient Problems: Problems Problem Status Onset Acute psychosis Acute Cannabis use disorder, severe, dependence Acute Severe manic bipolar 1 disorder with psychotic behavior Acute
[2017-03-09] MEDS: clonazePAM 0.5 MG TAB PO PRN (18:20)
[2017-03-09] MEDS: MELATONIN 3 MG TAB PO PRN (20:50)
[2017-03-10] MEDS: NICOTINE POLACRILEX 2 MG GUM B PRN ×6 (06:01→19:13)
[2017-03-10] MEDS: NICOTINE 14 MG/24 HR PATCH TD SCH (08:26)
[2017-03-10] MEDS: clonazePAM 0.5 MG TAB PO SCH ×2 (08:26→20:01)
[2017-03-10] MEDS: clonazePAM 0.5 MG TAB PO PRN (14:35)
--- NOTE | 2017-03-10 15:11 | SOAPPROG ---
SOAP Progress Note Assessment/Plan: Assessment: Patient with Bipolar disorder reporting being ready to leave now that he has received his Invega Sustenna shot, which he felt was helpful in the past. He is calmer today. His speech is not pressured at this time. He did get angry, resulting in him slamming the office door, when he was told he would not be leaving this weekend. Plan: Will continue Invega Sustenna for mood disorder and psychosis. 03/08/17 14:43 03/09/17 12:28 03/10/17 14:59 Subjective: He reports he id doing good. He met with a program checker, but he wasn't quite sure what the meeting was about. He reports he slept well last night. His appetite is good. He denies racing thoughts or hallucinations. He states he just learned from the program checker that his apartment managers were concerned about his eating prior to his coming here. He wondered if he would be discharged today. Objective: Vital Signs Temp Pulse Resp BP Pulse Ox 36.4 C 78 18 127/80 H 100 03/10/17 05:59 03/10/17 05:59 03/10/17 05:59 03/10/17 05:59 03/10/17 05:59 Tall, male, appropriately dressed and groomed. Good eye contact. Speech- RRR and tone. Mood- "Doing Good." Affect- Initially euthymic, then angry after being told he would not be discharged. Thought Process- linear, goal directed. Thought Content - No SI/HI. No AH/VH. No delusional statement s made today. - Time Spent With Patient Time Spent With Patient: 15 - Pending Discharge Pending Discharge Within 24 Hours: No ICD10 Worksheet Patient Problems: Problems Problem Status Onset Acute psychosis Acute Cannabis use disorder, severe, dependence Acute Severe manic bipolar 1 disorder with psychotic behavior Acute
[2017-03-10] MEDS: QUEtiapine FUMARATE 100 MG TAB PO PRN (16:06)
[2017-03-10] MEDS: MELATONIN 3 MG TAB PO PRN (20:01)
[2017-03-11] MEDS: NICOTINE 14 MG/24 HR PATCH TD SCH (08:40)
[2017-03-11] MEDS: clonazePAM 0.5 MG TAB PO SCH ×2 (08:40→21:02)
[2017-03-11] MEDS: NICOTINE POLACRILEX 2 MG GUM B PRN ×6 (10:01→19:44)
[2017-03-11] MEDS: clonazePAM 0.5 MG TAB PO PRN ×2 (13:19→22:36)
--- NOTE | 2017-03-11 15:03 | SOAPPROG ---
SOAP Progress Note Assessment/Plan: Assessment: Patient with Bipolar disorder reporting being ready to leave now that he has received his Invega Sustenna shot, which he felt was helpful in the past. He is irritable today due to his feeling that this sba underwriter has no power to discharge him. He was more pressured and labile during our interactions. He has no insight into his illness or the consequences of getting an eviction notice. Plan: Will continue Invega Sustenna for mood disorder and psychosis. 03/08/17 14:43 03/09/17 12:28 03/10/17 14:59 03/11/17 14:56 Subjective: He reports he is doing good. He was evicted, but he has been paying his rent, so the eviction means nothing in his mind. He has not been sleeping well in his estimation (nursing #8.5 hours). He reports Invega works for him. He reports he doesn't sleep well because unlike some of his peers, he doesn't want to be here. He reports Seroquel is a bad drug for him,so he won't take it in the future. "It makes me feel like I'm floating." Objective: Vital Signs Temp Pulse Resp BP Pulse Ox 36.3 C 88 16 145/77 H 96 03/11/17 06:00 03/11/17 06:00 03/11/17 06:00 03/11/17 06:00 03/11/17 06:00 Tall, male appropriately dressed and groomed. Good eye contact. Speech - Pressured. Loud. Mood- ""Good." Affect- labile. Thought Process- Tangential. Thought Content - No SI/HI. No AH/VH. - Time Spent With Patient Time Spent With Patient: 25 - Pending Discharge Pending Discharge Within 24 Hours: No Pending Discharge Within 48 Hours: No ICD10 Worksheet Patient Problems: Problems Problem Status Onset Acute psychosis Acute Cannabis use disorder, severe, dependence Acute Severe manic bipolar 1 disorder with psychotic behavior Acute
[2017-03-12] MEDS: NICOTINE POLACRILEX 2 MG GUM B PRN ×9 (06:59→21:36)
[2017-03-12] MEDS: clonazePAM 0.5 MG TAB PO SCH (08:43)
[2017-03-12] MEDS: NICOTINE 14 MG/24 HR PATCH TD SCH (08:43)
[2017-03-12] MEDS ORDERED: PALIPERIDONE 3 MG TAB.ER PO ONE (11:24)
--- NOTE | 2017-03-12 13:15 | SOAPPROG ---
SOAP Progress Note Assessment/Plan: Assessment: 03/02/17 13:32 Plan: 1. Patient states he prefers to take Invega which has been helpful to him in past. D/C Zyprexa and start Invega 3mg daily. 2. Place on ST 3. CC will attempt to contact family for collateral information. 03/12/17 13:11 1. Patient was given his first Invega Sustenna 234mg IM injection on 03/08/17. It would be appropriate to continue him on PO Invega for up to 3 weeks per manufacturers instructions after getting IM doses. Will restart PO dose to maintain therapeutic drug levels. 2. Patient will have 2nd dose of IM CHEN on 03/15/17. Patient has given informed consent for these medications. 3. Will d/c Seroquel, Benadryl and Ativan scheduled as these are redundant and unnecessary meds. However, will order Ativan 0.5mg Q4hrs for anxiety/agitation if needed. 4. MD called and confirmed court hearing in [facility] for [facility] contestation on 03/19/17 at 15:30. 5. Patient has f/u appt with [facility] on 03/16/17 at 0915. Will try to d/c directly to his appt. Subjective: Met with patient and discussed with staff. explained the process for getting second dose of CHEN Sustenna one week after the first. Patient was quite irritable and argued with MD stating, "you can just give it to me now" and when MD explained why doses need to be , he said, "I've been on this medicine before and you can give it to me 2 days later." Patient was adamant about being discharged and said he would "get the next dose as outpatient" but patient admitted he didn't have any mental health providers. MD explained how important it was that patient have appropriate f/u with outpatient psych providers and how important it was to maintain compliance with meds after discharge. MD also warned patient about adverse effects of smoking THC which prompted paranoia, delusions, altered mental status, poor judgment, inability to meet daily needs and led to patient's hospital admission. Patient argued that he was admitted for "false reasons" and does not agree that marijuana leads to negative consequences for him. Patient said he would go to [facility] appointment, but wasn't sure "what they were going to do" for him. explained some of the benefits of maintaining relationship with outpatient providers and staying on monthly injections of CHEN. also explained he may need to stay on PO Invega for up to 3 weeks even after getting CHEN. Patient denied any AH/VH, and denied any SI/HI. Objective: Vital Signs Temp Pulse Resp BP Pulse Ox 36.7 C 97 18 131/59 H 98 03/12/17 06:00 03/12/17 06:00 03/12/17 06:00 03/12/17 06:00 03/12/17 06:00 MSE: Thin, tall man with hollow cheeks, campos stubble, glasses, shorts and T- shirt. Affect: Irritable, argumentative Mood: "OK" TP: Perseverative, illogical TC: Delusional, denies AH/VH, denies SI/HI, no evidence of vijay Insight/Judgment: Impaired - Time Spent With Patient Time Spent With Patient: 25" - Pending Discharge Pending Discharge Within 24 Hours: No Pending Discharge Date: 03/16/17 (Patient has f/u appt at 0915 on 03/16/17, would like to d/c him directly to appt) ICD10 Worksheet Patient Problems: Problems Problem Status Onset Acute psychosis Acute Cannabis use disorder, severe, dependence Acute Severe manic bipolar 1 disorder with psychotic behavior Acute - ICD10 Problem Qualifiers (1) Severe manic bipolar 1 disorder with psychotic behavior (2) Cannabis use disorder, severe, dependence
[2017-03-12] MEDS: clonazePAM 0.5 MG TAB PO PRN ×2 (16:16→22:19)
[2017-03-13] MEDS: NICOTINE POLACRILEX 2 MG GUM B PRN ×5 (07:21→18:24)
[2017-03-13] MEDS: PALIPERIDONE 3 MG TAB.ER PO SCH (08:51)
[2017-03-13] MEDS: NICOTINE 14 MG/24 HR PATCH TD SCH (08:51)
[2017-03-13] MEDS ORDERED: PALIPERIDONE 9 MG TAB.ER PO SCH (09:00)
[2017-03-13] MEDS: clonazePAM 0.5 MG TAB PO PRN ×2 (12:26→16:28)
--- NOTE | 2017-03-13 12:50 | SOAPPROG ---
SOAP Progress Note Assessment/Plan: Assessment: 03/02/17 13:32 Plan: 1. Patient states he prefers to take Invega which has been helpful to him in past. D/C Zyprexa and start Invega 3mg daily. 2. Place on ST 3. CC will attempt to contact family for collateral information. 03/12/17 13:11 1. Patient was given his first Invega Sustenna 234mg IM injection on 03/08/17. It would be appropriate to continue him on PO Invega for up to 3 weeks per manufacturers instructions after getting IM doses. Will restart PO dose to maintain therapeutic drug levels. 2. Patient will have 2nd dose of IM CHEN on 03/15/17. Patient has given informed consent for these medications. 3. Will d/c Seroquel, Benadryl and Ativan scheduled as these are redundant and unnecessary meds. However, will order Ativan 0.5mg Q4hrs for anxiety/agitation if needed. 4. MD called and confirmed court hearing in [facility] for [facility] contestation on 03/19/17 at 15:30. 5. Patient has f/u appt with [facility] on 03/16/17 at 0915. Will try to d/c directly to his appt. 03/13/17 12:47 Plan: 1. CCM 2. Invega Sustenna scheduled for 03/15/17 3. D/C likely on Sunday to [facility] appt. Subjective: Met with patient and discussed with staff. Patient is more pleasant and cooperative with MD interview today. He is seated on couch and has a more relaxed body language and is smiling. He says that he is waiting for his next Invega injection and wants to leave by Sunday. MD reminded him of his appointment with [facility] on Sunday. He denies any AH/VH, denies paranoia and denies any thoughts, plans or intent to hurt himself. He plans to return to his apartment, which CC has confirmed is paid through end of March. Objective: Vital Signs Temp Pulse Resp BP Pulse Ox 36.7 C 91 14 105/68 96 03/13/17 06:00 03/13/17 06:00 03/13/17 06:00 03/13/17 06:00 03/13/17 06:00 MSE: Seated on couch watching TV. Is pleasant and relaxed when talking to MD. Affect: Euthymic Mood: "OK" TP: More linear and logical TC: Denies any AH/VH , paranoia, delusions and denies any SI/HI Insight/Judgment: Poor - Time Spent With Patient Time Spent With Patient: 20" - Pending Discharge Pending Discharge Within 24 Hours: No ICD10 Worksheet Patient Problems: Problems Problem Status Onset Acute psychosis Acute Cannabis use disorder, severe, dependence Acute Severe manic bipolar 1 disorder with psychotic behavior Acute - ICD10 Problem Qualifiers (1) Severe manic bipolar 1 disorder with psychotic behavior (2) Cannabis use disorder, severe, dependence
[2017-03-13] MEDS: MELATONIN 3 MG TAB PO PRN (21:04)
[2017-03-14] MEDS: NICOTINE POLACRILEX 2 MG GUM B PRN ×10 (02:56→18:57)
[2017-03-14] MEDS: PALIPERIDONE 3 MG TAB.ER PO SCH (08:30)
[2017-03-14] MEDS: NICOTINE 14 MG/24 HR PATCH TD SCH (08:31)
[2017-03-14] MEDS: clonazePAM 0.5 MG TAB PO PRN ×3 (09:26→17:12)
--- NOTE | 2017-03-14 13:25 | SOAPPROG ---
SOAP Progress Note Assessment/Plan: Assessment: 03/02/17 13:32 Plan: 1. Patient states he prefers to take Invega which has been helpful to him in past. D/C Zyprexa and start Invega 3mg daily. 2. Place on ST 3. CC will attempt to contact family for collateral information. 03/12/17 13:11 1. Patient was given his first Invega Sustenna 234mg IM injection on 03/08/17. It would be appropriate to continue him on PO Invega for up to 3 weeks per manufacturers instructions after getting IM doses. Will restart PO dose to maintain therapeutic drug levels. 2. Patient will have 2nd dose of IM CHEN on 03/15/17. Patient has given informed consent for these medications. 3. Will d/c Seroquel, Benadryl and Ativan scheduled as these are redundant and unnecessary meds. However, will order Ativan 0.5mg Q4hrs for anxiety/agitation if needed. 4. MD called and confirmed court hearing in [facility] for [facility] contestation on 03/19/17 at 15:30. 5. Patient has f/u appt with [facility] on 03/16/17 at 0915. Will try to d/c directly to his appt. 03/13/17 12:47 Plan: 1. CCM 2. Invega Sustenna scheduled for 03/15/17 3. D/C likely on Sunday to [facility] appt. 03/14/17 13:22 Plan: 1. CCM. No change. 2. Discharge on 03/16/17 Subjective: Met with patient and discussed with staff. Patient has asked repeatedly when he' s going to get his next injection. MD has explained he will get a second dose tomorrow. After that dose, patient will need to see his outpatient provider for injection once a month. Patient admits he's been on Sustenna injections in past , and says he understands how they work. MD and CC both explained to patient that he will be d/c'd directly to his f/u appt at [facility] on Sunday. Patient denies any AH/VH, SI/HI. Objective: Vital Signs Temp Pulse Resp BP Pulse Ox 36.8 C 89 16 121/78 H 95 03/14/17 06:00 03/14/17 06:00 03/14/17 06:00 03/14/17 06:00 03/14/17 06:00 MSE: Can be irritable at times, especially with certain peers, but has been cooperative and pleasant to MD today. Affect: Euthymic Mood: "OK" TP: Tangential, perseverative TC: Denies any AH/VH, no evidence of paranoia or delusions, no SI/HI Insight/Judgment: Poor - Time Spent With Patient Time Spent With Patient: 20" - Pending Discharge Pending Discharge Within 48 Hours: Yes Pending Discharge Date: 03/16/17 (Will go directly to [facility] f/u appt at 0915) Pending Discharge Time: 09:00 ICD10 Worksheet Patient Problems: Problems Problem Status Onset Acute psychosis Acute Cannabis use disorder, severe, dependence Acute Severe manic bipolar 1 disorder with psychotic behavior Acute - ICD10 Problem Qualifiers (1) Severe manic bipolar 1 disorder with psychotic behavior (2) Cannabis use disorder, severe, dependence
[2017-03-14] MEDS: MELATONIN 3 MG TAB PO PRN (20:34)
[2017-03-15] MEDS: NICOTINE POLACRILEX 2 MG GUM B PRN ×8 (05:27→18:59)
[2017-03-15 05:32] VITALS: RESP 12
[2017-03-15] MEDS: clonazePAM 0.5 MG TAB PO PRN ×3 (08:25→16:32)
[2017-03-15] MEDS: PALIPERIDONE 3 MG TAB.ER PO SCH (08:25)
[2017-03-15] MEDS: NICOTINE 14 MG/24 HR PATCH TD SCH (08:26)
[2017-03-15] MEDS ORDERED: PALIPERIDONE PALMITATE 156 MG/ML SYR IM ONE (09:00)
--- NOTE | 2017-03-15 13:46 | SOAPPROG ---
SOAP Progress Note Assessment/Plan: Assessment: 03/02/17 13:32 Plan: 1. Patient states he prefers to take Invega which has been helpful to him in past. D/C Zyprexa and start Invega 3mg daily. 2. Place on ST 3. CC will attempt to contact family for collateral information. 03/12/17 13:11 1. Patient was given his first Invega Sustenna 234mg IM injection on 03/08/17. It would be appropriate to continue him on PO Invega for up to 3 weeks per manufacturers instructions after getting IM doses. Will restart PO dose to maintain therapeutic drug levels. 2. Patient will have 2nd dose of IM CHEN on 03/15/17. Patient has given informed consent for these medications. 3. Will d/c Seroquel, Benadryl and Ativan scheduled as these are redundant and unnecessary meds. However, will order Ativan 0.5mg Q4hrs for anxiety/agitation if needed. 4. MD called and confirmed court hearing in [facility] for [facility] contestation on 03/19/17 at 15:30. 5. Patient has f/u appt with [facility] on 03/16/17 at 0915. Will try to d/c directly to his appt. 03/13/17 12:47 Plan: 1. CCM 2. Invega Sustenna scheduled for 03/15/17 3. D/C likely on Sunday to [facility] appt. 03/14/17 13:22 Plan: 1. CCM. No change. 2. Discharge on 03/16/17 03/15/17 13:42 Plan: 1. Patient received Invega Sustenna 156mg IM today. 2. D/C tomorrow directly to [facility] apt at 0915 Subjective: Met with patient and discussed with staff. Patient appears calmer, more coherent , asks appropriate questions about his f/u plan and is cooperative. He wants to know who will interview him tomorrow at [facility] and how many providers he will have there. MD answers his questions and encourages him to discuss his concerns with his [facility] providers as well. He agrees. At one point, patient shows improved insight by commenting, "I guess it was good that I came here ([facility]) because you guys will get me hooked up with doctors...I went to the pharmacy and said I needed pills, but they told me to find a doctor...but I didn't know how to get a doctor...it's good you got me one." Patient denies any AH/VH, no s/s of paranoia, delusions. He denies any thoughts, plan or intent to hurt himself or others. Objective: Vital Signs Temp Pulse Resp BP Pulse Ox 36.4 C 87 12 121/75 H 95 03/15/17 05:31 03/15/17 05:31 03/15/17 05:31 03/15/17 05:31 03/15/17 05:31 MSE: Tall, thin, shorts, T-shirt, unshaved. Affect: Euthymic Mood: "Good" TP : More linear and goal directed TC: Denies any AH/VH, paranoia, delusions, no SI/HI Insight/Judgment: Improved - Time Spent With Patient Time Spent With Patient: 25" - Pending Discharge Pending Discharge Within 24 Hours: Yes Pending Discharge Date: 03/16/17 (CC to take pt directly to [facility] appt at 0900) Pending Discharge Time: 09:00 ICD10 Worksheet Patient Problems: Problems Problem Status Onset Acute psychosis Acute Cannabis use disorder, severe, dependence Acute Severe manic bipolar 1 disorder with psychotic behavior Acute - ICD10 Problem Qualifiers (1) Severe manic bipolar 1 disorder with psychotic behavior (2) Cannabis use disorder, severe, dependence
--- NOTE | 2017-03-15 15:29 | BDS ---
[f rep st] BEHAVIORAL HEALTH DISCHARGE SUMMARY REASON FOR ADMISSION: The patient is a 36-year-old single man, who was brought to the [facility] ED on an M1 hold. APS had been called by the manager investment banking due to concerns for the patient's well being. When police conducted a welfare check on the patient, it was observed the patient had no food in h is apartment, his apartment was in disarray, and the patient had drawn various numbers, lines, and l etters on the white apartment morales. Per the M1 hold document stated "Respondent is highly tangenti al and nonsensical, becomes irate when asked if he wants to go to the hospital. Respondent's apartm ent is covered in crayon drawings in random words and numbers. Only a box of raw noodles in the ref rigerator. Apartment staff report respondent had lost a large amount of weight and has become incre asingly bizarre in the past few months. Respondent appears manic and gravely disabled." ADMITTING DIAGNOSES: 1. Substance induced psychotic disorder. 2. Cannabis use disorder, severe. 3. Psychosocial stressors include unemployed, financial problems, isolation, living away from his f amily and friends, recently arrived in a new state. ADMISSION PHYSICAL EXAMINATION: Performed by Dr. Micha Donovan. Please see his H and P for detai ls. LABS ARE FOLLOWS: White cell count was 7.05, hemoglobin was 15.5, hematocrit was 45.4, platelet count 273, sodium 143, potassium 4.1, chloride 103, BUN 20, creatinine 0.9, glucose 74, calcium 9.7. Urine drug screen was positive for marijuana. Acetaminophen levels were undetected. All other dr ugs of abuse were negative. Blood alcohol level was less than 10. HOSPITAL COURSE: On admission to the hospital, met with the patient. He presented with pressure d speech and racing thoughts. The patient says he has moved around a lot. He lived in [place] in 1998 while he was attending [employer]. He was born and raised in [place], and suppo sedly that is where his family now lives. He says his parents when he was 10, and that his father, Karsten, is his payee. However, he also says his father has dementia and that his sister, Tien cisse, is taking care of his dad. The patient says he has taken "every single type of psych med" in t he past and is very picky about which medications he will voluntarily take. He says he will not hernandez e Zyprexa, Depakote, or lithium, but refuses to say what effect they have or whether he has experien darshana adverse affects from any of these meds. He also reports being hospitalized "7-10 times" in [facility] and "other places," but says it was always against his will because "someone called the police. " The patient presents as paranoid and delusional. At one point he says he needs "batteries for my tape recorder" so he can record everything we talk about. The patient gave a list of phone numbers from memory for his family, and has no way to know if they are reliable, but has passed this inf ormation on to the daycare assistant. The patient agreed to take Invega, which he says has been help ful for him in the past. On 03/02/2017, discontinued Zyprexa and started Invega 3 mg daily with a p cristy to titrate him up and convert him to a long-acting injectable. The patient was placed on a [facility]-term certification, and daycare assistant contacted the patient's family for collateral information . The patient was initially titrated up to 6 mg of p.o. Invega, and he was scheduled to get his fir st Invega Sustenna injection of 234 mg IM on 03/08/2017. He got his 2nd injection of Invega Sustenn a 156 mg IM on 03/15/2017. Other medications the patient had been given p.r.n. were discontinued, i ncluding Seroquel, Benadryl, and Ativan, which had been used to treat the patient for anxiety and ag itation. These were deemed redundant and unnecessary, as the patient had not used them for several days prior to them being discontinued on 03/22/2017. A lower dose of Ativan was ordered 0.5 mg inst ead of the 2 mg that he had been ordered during the early part of this admission. The reason that t he medications were deemed unnecessary was because the patient had become much more cooperative, maris m, and less agitated and anxious as he became less psychotic and manic. The patient stated that he was not willing to return to [place] where his family lived, and where he would have social support , as well as he could follow up with outpatient providers in the community where his family lived. He said that he wanted to stay in [place], so he was set up with a followup appoint with [facility]. On day of discharge, the patient presented calmer, more coherent, asked appropriate qu estions about his followup plan, and was cooperative. He wanted to know what the process of intake would be like at [facility]. answered his questions and encouraged him to discuss [facility] concerns with his [facility] providers. At one point the patient showed improved insight by commenting " I guess it was good that I came here because you guys will get me hooked up with doctors. I went to the pharmacy and said I needed pills, but they told me to find a doctor, but I did not know how to get a doctor. It's good you got me one." The patient denied any AH/VH. No signs or symptoms of pa ranoid delusions. Upon discharge, he had no thoughts, plans, or intents to hurt himself or others. CONDITION ON DISCHARGE: Stable. His affect was euthymic. He was much more coherent, organized, an d goal directed than at time of admission. DISCHARGE MEDICATIONS: Invega 6 mg p.o. daily. It was recommended for the patient to take this for another week or two until he got on his monthly maintenance dose, but he could discuss this with [facility] provider. The patient was also given a prescription for clonazepam 0.5 mg p.o. twice daily p. r.n., 14 tabs, and he was given melatonin 6 mg p.o. at bedtime p.r.n. for sleep, 30 tabs. DISCHARGE DIAGNOSES: 1. Bipolar disorder, type 1, manic with psychotic features. 2. Cannabis use disorder, severe. 3. Psychosocial stressors include lack of social support, living in a new state, family is far away , he is unemployed, he is on SSI. DISPOSITION: The patient will leave hospital directly to his followup appointment at [facility] on March 16, at 9:15 a.m. FOLLOWUP: The patient has intake evaluation at [facility] on 03/16/2017 at 9:15 am. LEGAL COURSE: The patient's short term certification was terminated upon discharge. /[id number]
[2017-03-15] MEDS: MELATONIN 3 MG TAB PO PRN (20:37)
[2017-03-16] MEDS: NICOTINE POLACRILEX 2 MG GUM B PRN ×2 (05:19→07:21)
[2017-03-16] MEDS: clonazePAM 0.5 MG TAB PO PRN (06:13)
[2017-03-16 07:07] VITALS: BP 119/73; PULSE 90; TEMP 98.2; O2SAT 97
[2017-03-16] MEDS: PALIPERIDONE 3 MG TAB.ER PO SCH (08:22)
== END 2017-03-16 09:00 | disposition home or self-care (01) | DRG 885 ==
LOC: EDUNIT# → EDBD → BBEH 03-01 12:05
PROVIDERS: ADMIT Specialist; ATTEND Specialist
DX: F31.2 Bipolar disorder, current episode manic severe with psychotic features (principal); F12.90 Cannabis use, unspecified, uncomplicated; F17.200 Nicotine dependence, unspecified, uncomplicated; F19.10 Other psychoactive substance abuse, uncomplicated
CPT/HCPCS: 80305; G0480; J2426